=== PATIENT | female | born 1935 | race Hispanic/Latino ===

== ENCOUNTER 2017-04-29 18:36 | Inpatient (IN) | payer MEDICARE ==
[~2017-04-29] VITALS: Ht 157.5 cm; Wt 63.6 kg
[~2017-04-29 18:36] MED LIST: B COMPLEX1200 MCG/1; BABY ASPIRIN81 MG; CALCIUM600 MG; CALCIUM600 MG PO; GEMFIBROZIL600 MG PO; LOSARTAN POTASS25 MG PO; MELOXICAM15 MG PO; METOPROLOL TART25 MG PO; OMEGA 3 1,0001 EACH PO; PRILOSEC40 MG PO; TIROSINT75 MCG PO; VITAMIN B-12500 MCG PO; VITAMIN D-32000 UNIT PO
[2017-04-29] MEDS ORDERED: ONDANSETRON HCL INJ 2 MG/ML VIAL IV STA (21:38)
[2017-04-29 21:45] LABS: BASOPHILS % 0.3 % (0.0-1.0); EOSINOPHILS % 0.1 % (0.0-6.0); HEMATOCRIT 49.3 % (34.2-44.1); HEMOGLOBIN 16.2 g/dL (12.0-16.0); LYMPHOCYTES # (AUTO) 1.2 (1.0-3.2); LYMPHOCYTES % 15.3 % (18.0-39.1); MEAN CORPUSCULAR HEMOGLOBIN 27.9 pg (28-32); MEAN CORPUSCULAR HGB CONC 32.9 g/dL (31-35); MEAN CORPUSCULAR VOLUME 84.9 fL (81-99); MONOCYTES # (AUTO) 0.4 (0.2-0.8); MONOCYTES % 4.7 % (4.4-11.3); NEUTROPHILS # (AUTO) 6.2 (2.1-6.9); NEUTROPHILS % 79.2 % (38.7-80.0); PLATELET COUNT 270 x10e3/uL (140-360); RED BLOOD COUNT 5.81 x10e6/uL (3.6-5.1); RED CELL DISTRIBUTION WIDTH 14.3 % (11.7-14.4)
[2017-04-29] MEDS ORDERED: SODIUM CHLORIDE 0.9% 1000ML 1,000 ML IV ONE (21:45)
[2017-04-29 22:00] LABS: ALANINE AMINOTRANSFERASE 25 IU/L (0-55); ALBUMIN 3.9 g/dL (3.5-5.0); ALKALINE PHOSPHATASE 66 IU/L (40-150); AMYLASE 91 U/L (25-125); ANION GAP 17.7 mmol/L (8-16); BLOOD UREA NITROGEN 18 mg/dL (7-26); BUN/CREATININE RATIO 18 (6-25); CALCIUM 9.5 mg/dL (8.4-10.2); CARBON DIOXIDE 27 mmol/L (22-29); CHLORIDE 98 mmol/L (98-107); CREATINE KINASE 59 IU/L (29-168); EST GLOMERULAR FILTRATION RATE 53 ML/MIN (60-); GLUCOSE 138 mg/dL (74-118); LIPASE 11 U/L (8-78); POTASSIUM 4.7 mmol/L (3.5-5.1); SODIUM 138 mmol/L (136-145)
[2017-04-29] MEDS ORDERED: SODIUM CHLORIDE 0.9% 50ML 50 ML ONE (22:49)
[2017-04-29] MEDS ORDERED: IOPAMIDOL 370 MG/ML 200 ML INFUS..BTL INJ ONE (22:49)
--- NOTE | 2017-04-29 23:11 | Diagnostic Imaging Report ---
EXAMINATION: CHEST SINGLE (PORTABLE) INDICATION: Shadows of breath COMPARISON: 01/04/2011 FINDINGS: TUBES and LINES: None. LUNGS: Lungs are not well inflated. There are bibasilar atelectasis. There is mild prominence of the central pulmonary vasculature, consistent with pulmonary venous congestion. PLEURA: No pleural effusion or pneumothorax. HEART AND MEDIASTINUM: The cardiomediastinal silhouette is unremarkable. There are atherosclerotic calcifications within the aorta. BONES AND SOFT TISSUES: No acute osseous lesion. Soft tissues are unremarkable. UPPER ABDOMEN: No free air under the diaphragm. IMPRESSION: 1. Low lung volumes with evidence of bibasilar atelectasis. 2. No evidence of consolidation on today's exam. If high clinical concern for pneumonia, dedicated PA and lateral view of the chest in upright position is recommended Signed by: Dr. Farrukh Thorne M.D. on 04/29/2017 11:07 PM
[2017-04-29 23:15] LABS: BILIRUBIN,URINE NEGATIVE (NEGATIVE); KETONES,URINE NEGATIVE (NEGATIVE); LEUKOCYTE ESTERASE ,URINE 1+ (NEGATIVE); NITRITE,URINE NEGATIVE (NEGATIVE); PROTEIN,URINE DIPSTICK NEGATIVE (NEGATIVE); URINE UROBILINOGEN 0.2 mg/dL (0.2 - 1)
--- NOTE | 2017-04-29 23:16 | Diagnostic Imaging Report ---
EXAM: CT Abdomen and Pelvis WITH contrast INDICATION: Abdominal pain, nausea, vomiting, diarrhea. COMPARISON: None. TECHNIQUE: Abdomen and pelvis were scanned utilizing a multidetector helical scanner from the lung base to the pubic symphysis after administration of IV contrast. Coronal and sagittal reformations were obtained. Routine protocol was performed. Scan was performed when during portal venous phase. IV CONTRAST: 100 mL of Isovue-370 ORAL CONTRAST: Water RADIATION DOSE: Total DLP: 323.07 mGy*cm Estimated effective dose: (DLP x 0.015 x size factor) mSv COMPLICATIONS: None FINDINGS: LINES and TUBES: None. LOWER THORAX: Unremarkable HEPATOBILIARY: Focal indeterminate hypodensity in the right liver measuring 1.2 cm in diameter on series 2, image 15 There is intra- and extra- hepatic biliary dilation likely post cholecystectomy reservoir effect. GALLBLADDER: There are cholecystectomy clips. No wall thickening. SPLEEN: No splenomegaly. PANCREAS: No focal masses or ductal dilatation. ADRENALS: Indeterminate 1.8 cm left adrenal nodule KIDNEYS/URETERS: Kidneys enhance symmetrically. No hydronephrosis. No cystic or solid mass lesions. No stones. GI TRACT: No abnormal distention, wall thickening, or evidence of bowel obstruction. However, there is hyperemia of the small bowel predominantly involving the terminal ileum compatible with enteritis. Appendix is normal. PELVIC ORGANS/BLADDER: There are postop changes of hysterectomy and bilateral oophorectomies. LYMPH NODES: Numerous, small mesenteric lymph nodes with evidence of fat stranding best seen on coronal image 44 and axial image 39. VESSELS: There is mild atherosclerotic disease in the aorta and major arterial branches. PERITONEUM / RETROPERITONEUM: . Mesenteric root fat stranding with few enlarged lymph nodes BONES: There are moderate degenerative changes in the lumbar spine. SOFT TISSUES: Unremarkable. IMPRESSION: 1. Findings in the small bowel and mesenteric root compatible with enteritis in the appropriate clinical setting. 2. Indeterminate left adrenal nodule measuring 1.8 cm. 3. Indeterminate hypodensity in the right liver measuring 1.2 cm in diameter. 4. Further evaluation of latter findings can be obtained with MRI with and without contrast Signed by: Dr. Farrukh Thorne M.D. on 04/29/2017 11:12 PM
[2017-04-29 23:17] LABS: CLARITY,URINE CLEAR (CLEAR); COLOR,URINE YELLOW (YELLOW)
[2017-04-29 23:36] LABS: BACTERIA,URINE RARE /HPF; EPITHELIAL CELLS,URINE FEW /LPF; RBC,URINE 0-5 /HPF (0-5)
[2017-04-30] VITALS (8 sets, daily range): BP systolic 108–143; BP diastolic 61–70
[2017-04-30] MEDS ORDERED: ONDANSETRON HCL INJ 2 MG/ML VIAL IV STA (00:10)
[2017-04-30] MEDS ORDERED: ONDANSETRON HCL INJ 2 MG/ML VIAL IV PRN (00:15)
[2017-04-30] MEDS ORDERED: METRONIDAZOLE 500MG/NS 100ML IV SCH (00:15)
--- OUTSIDE RECORDS SUMMARY | 2017-04-30 00:32 | XMS REPORT ---
Author Author [facility] Address Unknown Phone Unavailable Care Team Providers Care Press Offbearer Name Role Phone TAMARA GAINES Unavailable Unavailable Problems This patient has no known problems. Allergies, Adverse Reactions, Alerts This patient has no known allergies or adverse reactions. Medications This patient has no known medications. Results Test Description Test Time Test Comments Text Results Atomic Results Result Comments CHEST SINGLE (PORTABLE) [place] [address] Patient Name: AHMET HUSAIN MR #: [id number] : 1935 Age/Sex: 82/F Req #: [id number] Adm Physician: Ordered by: LEO RAY MD Report #: [id number] Location: ER Room/Bed: ___ Procedure: [id number] DX/CHEST SINGLE (PORTABLE) Exam Date: 04/29/17 Exam Time: 2230 REPORT STATUS: Signed EXAMINATION: CHEST SINGLE (PORTABLE) INDICATION: Shadows of breath COMPARISON: 01/04/2011 FINDINGS: TUBES and LINES: None. LUNGS: Lungs are not well inflated. There are bibasilar atelectasis. There is mild prominence of the central pulmonary vasculature, consistent with pulmonary venous congestion. PLEURA: No pleural effusion or pneumothorax. HEART AND MEDIASTINUM: The cardiomediastinal silhouette is unremarkable. There are atherosclerotic calcifications within the aorta. BONES AND SOFT TISSUES: No acute osseous lesion. Soft tissues are unremarkable. UPPER ABDOMEN: No free air under the diaphragm. IMPRESSION: 1. Low lung volumes with evidence of bibasilar atelectasis. 2. No evidence of consolidation on today's exam. If high clinical concern for pneumonia, dedicated PA and lateral view of the chest in upright position is recommended Signed by: Dr. Farrukh Thorne M.D. on 04/29/2017 11:07 PM Dictated By: FARRUKH STOVALL MD 06 Transcribed By: GALE on 04/29/172306 COPY TO: LEO RAY MD CT ABDOMEN/PELVIS W [place] [address] Patient Name: AHMET HUSAIN MR #: [id number] : 1935 Age/Sex: 82/F Req #: [id number] Adm Physician: Ordered by: LEO RAY MD Report #: [id number] Location: ER Room/Bed: ___ Procedure: [id number] CT/CT ABDOMEN/PELVIS W Exam Date: 04/29/17 Exam Time: 2228 REPORT STATUS: Signed EXAM: CT Abdomen and Pelvis WITH contrast INDICATION: Abdominal pain, nausea, vomiting, diarrhea. COMPARISON: None. TECHNIQUE: Abdomen and pelvis were scanned utilizing a multidetector helical scanner from the lung base to the pubic symphysis after administration of IV contrast. Coronal and sagittal reformations were obtained. Routine protocol was performed. Scan was performed when during portal venous phase. IV CONTRAST: 100 mL of Isovue-370 ORAL CONTRAST: Water RADIATION DOSE: Total DLP: 323.07 mGy*cm Estimated effective dose: (DLP x 0.015 x size factor) mSv COMPLICATIONS: None FINDINGS: LINES and TUBES: None. LOWER THORAX: Unremarkable HEPATOBILIARY: Focal indeterminate hypodensity in the right liver measuring 1.2 cm in diameter on series 2, image 15 There is intra- and extra- hepatic biliary dilation likely post cholecystectomy reservoir effect. GALLBLADDER: There are cholecystectomy clips. No wall thickening. SPLEEN: No splenomegaly. PANCREAS: No focal masses or ductal dilatation. ADRENALS: Indeterminate 1.8 cm left adrenal nodule KIDNEYS/URETERS: Kidneys enhance symmetrically. No hydronephrosis. No cystic or solid mass lesions. No stones. GI TRACT: No abnormal distention, wall thickening, or evidence of bowel obstruction. However, there is hyperemia of the small bowel predominantly involving the terminal ileum compatible with enteritis. Appendix is normal. PELVIC ORGANS/BLADDER: There are postop changes of hysterectomy and bilateral oophorectomies. LYMPH NODES: Numerous, small mesenteric lymph nodes with evidence of fat stranding best seen on coronal image 44 and axial image 39. VESSELS: There is mild atherosclerotic disease in the aorta and major arterial branches. PERITONEUM / RETROPERITONEUM: . Mesenteric root fat stranding with few enlarged lymph nodes BONES: There are moderate degenerative changes in the lumbar spine. SOFT TISSUES: Unremarkable. IMPRESSION: 1. Findings in the small bowel and mesenteric root compatible with enteritis in the appropriate clinical setting. 2. Indeterminate left adrenal nodule measuring 1.8 cm. 3. Indeterminate hypodensity in the right liver measuring 1.2 cm in diameter. 4. Further evaluation of latter findings can be obtained with MRI with and without contrast Signed by: Dr. Farrukh Thorne M.D. on 04/29/2017 11 :12 PM Dictated By: FARRUKH STOVALL MD 2314 Transcribed By: GALE on 04/29/172 COPY TO: LEO RAY MD
[2017-04-30] MEDS: LEVOFLOXACIN 500MG/D5W 100ML IV SCH (00:37)
[2017-04-30] MEDS: SODIUM CHLORIDE 0.9% 1000ML 1,000 ML IV SCH ×3 (00:37→14:07)
[2017-04-30] MEDS ORDERED: PROMETHAZINE 12.5MG/ NACL 0.9% 12.5 MG/50 ML BAG IV PRN (02:15)
[2017-04-30] MEDS: METRONIDAZOLE 500MG/NS 100ML IV SCH ×3 (08:00→20:30)
[2017-04-30] MEDS: METOPROLOL TARTRATE 25 MG TAB PO SCH (14:00)
[2017-04-30] MEDS ORDERED: LOSARTAN POTASSIUM 25 MG TAB PO SCH (14:00)
--- NOTE | 2017-04-30 14:24 | History and Physical ---
PCP: Dr. Trinidad Burnett CHIEF COMPLAINT: Diarrhea for 4 days, dehydration, abdominal pain. HISTORY OF PRESENT ILLNESS: Patient is an 82-year-old female with diarrhea for the past 4 days. The patient came in with CT scan of abdomen and pelvis showing that she has finding in the small bowel and mesenteric root compatible with enteritis associated with diarrhea. Patient has been getting IV antibiotics and antiemetics. She has tolerated a clear liquid diet. She is otherwise stable at this time. PAST MEDICAL HISTORY: Hyperlipidemia, hypertension and hypothyroidism. HOME MEDICATIONS: Gemfibrozil, levothyroxine, losartan, metoprolol tartrate. ALLERGIES: NO KNOWN ALLERGIES. PAST SURGICAL HISTORY: Cholecystectomy and hysterectomy. SOCIAL HISTORY: Patient does not smoke or use alcohol. No recreational drugs. REVIEW OF SYSTEMS: Diarrhea, abdominal pain and cramping. PHYSICAL EXAMINATION GENERAL: The patient is not in acute distress. She is awake. VITAL SIGNS: Temperature 98. Blood pressure 110/61. Pulse rate 73. Respirations 18. HEENT: Normocephalic, atraumatic, anicteric. NECK: Supple grossly. PULMONARY: Clear. CARDIOVASCULAR: Regular rate and rhythm. ABDOMEN: Generalized discomfort. No rebound or guarding. EXTREMITIES: No gross cyanosis or edema. NEUROLOGIC: There is no gross focal deficit. LABORATORY: Sodium is 138, potassium 4.7, chloride 98, bicarb 27, BUN 18, creatinine 1.0, glucose 138. WBC 7.8, hemoglobin 16, hematocrit 49, platelets 270. IMPRESSION 1. Small-bowel enteritis. 2. Abdominal pain. 3. Diarrhea. 4. Dehydration. PLAN: Continue with IV fluids. Advance to a full liquid diet. Antibiotics. Consultation with Dr. Montalvo. The patient is otherwise stable at this time. Job#: [id number]
[2017-04-30] MEDS ORDERED: HYDROCHLOROTHIA25 MG PO (14:47)
[2017-04-30] MEDS ORDERED: OMEPRAZOLE40 MG PO (14:47)
[2017-04-30] MEDS ORDERED: ZEITA PO (14:47)
[2017-04-30] MEDS ORDERED: AMLODIPINE BESYL5 MG PO (14:47)
[2017-05-01] VITALS (9 sets, daily range): BP systolic 95–144; BP diastolic 59–87
[2017-05-01] MEDS: LEVOFLOXACIN 500MG/D5W 100ML IV SCH ×2 (00:18→23:52)
[2017-05-01] MEDS: METRONIDAZOLE 500MG/NS 100ML IV SCH ×4 (01:55→20:27)
[2017-05-01] MEDS ORDERED: LEVOTHYROXINE SODIUM 75 MCG TAB PO SCH (06:00)
[2017-05-01] MEDS: SODIUM CHLORIDE 0.9% 1000ML 1,000 ML IV SCH ×2 (06:05→20:27)
[2017-05-01] MEDS: PANTOPRAZOLE SOD 40 MG TABEC PO SCH (07:30)
[2017-05-01 07:42] LABS: BASOPHILS % 0.6 % (0.0-1.0); EOSINOPHILS # (AUTO) 0.2 (0.0-0.4); EOSINOPHILS % 2.6 % (0.0-6.0); HEMATOCRIT 41.3 % (34.2-44.1); HEMOGLOBIN 13.6 g/dL (12.0-16.0); LYMPHOCYTES # (AUTO) 3.1 (1.0-3.2); LYMPHOCYTES % 47.7 % (18.0-39.1); MEAN CORPUSCULAR HGB CONC 32.9 g/dL (31-35); MEAN CORPUSCULAR VOLUME 85.2 fL (81-99); MONOCYTES # (AUTO) 0.5 (0.2-0.8); MONOCYTES % 7.3 % (4.4-11.3); NEUTROPHILS # (AUTO) 2.7 (2.1-6.9); NEUTROPHILS % 41.6 % (38.7-80.0); PLATELET COUNT 218 x10e3/uL (140-360); RED BLOOD COUNT 4.85 x10e6/uL (3.6-5.1); RED CELL DISTRIBUTION WIDTH 14.4 % (11.7-14.4)
[2017-05-01 08:06] LABS: ALANINE AMINOTRANSFERASE 18 IU/L (0-55); ALBUMIN 2.9 g/dL (3.5-5.0); ALKALINE PHOSPHATASE 49 IU/L (40-150); ANION GAP 12.3 mmol/L (8-16); BLOOD UREA NITROGEN 8 mg/dL (7-26); BUN/CREATININE RATIO 10 (6-25); CALCIUM 7.9 mg/dL (8.4-10.2); CARBON DIOXIDE 24 mmol/L (22-29); CHLORIDE 111 mmol/L (98-107); CREATININE, SERUM 0.81 mg/dL (0.57-1.11); EST GLOMERULAR FILTRATION RATE > 60 ML/MIN (60-); GLUCOSE 83 mg/dL (74-118); POTASSIUM 3.3 mmol/L (3.5-5.1); SODIUM 144 mmol/L (136-145)
[2017-05-01] MEDS: HYDROCHLOROTHIAZIDE 25 MG TAB PO SCH (08:26)
[2017-05-01] MEDS: METOPROLOL TARTRATE 25 MG TAB PO SCH (08:26)
[2017-05-01] MEDS: AMLODIPINE BESYLATE 5 MG TAB PO SCH (08:26)
[2017-05-01 08:35] LABS: FOLATE 18.5 ng/mL (7.0-15.4)
[2017-05-01] MEDS ORDERED: METOPROLOL TARTRATE 25 MG TAB PO SCH (09:00)
[2017-05-01] MEDS ORDERED: LOSARTAN POTASSIUM 25 MG TAB PO SCH (09:00)
--- NOTE | 2017-05-01 13:23 | Consultation ---
DATE OF CONSULTATION: May 01, 2017 CHIEF COMPLAINT: Diarrhea. HISTORY OF PRESENT ILLNESS: This is a very pleasant, 82-year-old lady coming in with diarrhea on and off, worse in the last 4 days. Denies blood in the stool. She felt weak and dehydrated. PAST MEDICAL HISTORY: See old records. SURGICAL HISTORY: Not significant. FAMILY HISTORY: Noncontributory. REVIEW OF SYSTEMS: Diarrhea, weakness. MEDICATIONS: See list. PHYSICAL EXAMINATION VITAL SIGNS: Blood pressure 140/80, pulse 80, temperature 98. GENERAL: A well nourished lady in no distress. HEENT: No pallor. ABDOMEN: Soft, nontender. EXTREMITIES: No edema. ASSESSMENT AND PLAN: Diarrhea, chronic and acute. I recommend continued antibiotics and stool for C. diff. Patient is improving. Will advance diet. Consider colonoscopy as an outpatient, as she has had symptoms on and off for the last few months. Job#: [id number]
[2017-05-01] MEDS ORDERED: POTASSIUM CHLORIDE 10 MEQ TABCR PO ONE (16:00)
[2017-05-01] MEDS: DICYCLOMINE HCL 10 MG CAP PO SCH (20:27)
[2017-05-01] MEDS: CHOLESTYRAMINE 4 GM PACKET PO SCH (20:27)
[2017-05-01] MEDS: DIPHENOXYLATE/ATROPINE TAB PO PRN (20:27)
[2017-05-02] VITALS (7 sets, daily range): BP systolic 115–128; BP diastolic 68–97
[2017-05-02] MEDS: METRONIDAZOLE 500MG/NS 100ML IV SCH ×4 (02:30→21:13)
[2017-05-02] MEDS: LEVOTHYROXINE SODIUM 50 MCG TAB PO SCH (05:48)
[2017-05-02 06:27] LABS: ANION GAP 10.5 mmol/L (8-16); BLOOD UREA NITROGEN 6 mg/dL (7-26); BUN/CREATININE RATIO 8 (6-25); CALCIUM 8.2 mg/dL (8.4-10.2); CARBON DIOXIDE 27 mmol/L (22-29); CHLORIDE 110 mmol/L (98-107); CREATININE, SERUM 0.77 mg/dL (0.57-1.11); EST GLOMERULAR FILTRATION RATE > 60 ML/MIN (60-); GLUCOSE 100 mg/dL (74-118); POTASSIUM 3.5 mmol/L (3.5-5.1); SODIUM 144 mmol/L (136-145)
[2017-05-02] MEDS ORDERED: POTASSIUM CHLORIDE 10 MEQ TABCR PO ONE (09:30)
[2017-05-02] MEDS: DICYCLOMINE HCL 10 MG CAP PO SCH ×3 (09:31→15:37)
[2017-05-02] MEDS: HYDROCHLOROTHIAZIDE 25 MG TAB PO SCH (09:31)
[2017-05-02] MEDS: PANTOPRAZOLE SOD 40 MG TABEC PO SCH (09:31)
[2017-05-02] MEDS: AMLODIPINE BESYLATE 5 MG TAB PO SCH (09:32)
[2017-05-02] MEDS: METOPROLOL TARTRATE 25 MG TAB PO SCH (09:32)
[2017-05-02] MEDS: DIPHENOXYLATE/ATROPINE TAB PO PRN (09:32)
[2017-05-02] MEDS: CHOLESTYRAMINE 4 GM PACKET PO SCH ×3 (09:32→21:13)
[2017-05-02] MEDS: SODIUM CHLORIDE 0.9% 1000ML 1,000 ML IV SCH (10:11)
[2017-05-03] VITALS: BP_SYST 136
[2017-05-03] MEDS: SODIUM CHLORIDE 0.9% 1000ML 1,000 ML IV SCH ×2 (00:05→12:52)
[2017-05-03] MEDS: LEVOFLOXACIN 500MG/D5W 100ML IV SCH (00:12)
[2017-05-03] MEDS: METRONIDAZOLE 500MG/NS 100ML IV SCH ×3 (02:58→14:42)
--- NOTE | 2017-05-03 03:44 | Progress Note ---
DATE: May 02, 2017 GI PROGRESS NOTE DATE OF : 1935 SUBJECTIVE: Patient is no longer having diarrhea. She has had 1 soft stool today. REVIEW OF SYSTEMS GENERAL: No fever or chills. CVS: No chest pain, palpitation. RESPIRATORY: No cough or expectoration. MEDICATIONS: Cholestyramine, metronidazole, dicyclomine, amlodipine, metoprolol, pantoprazole, hydrochlorothiazide, levothyroxine, levofloxacin, Zofran. PHYSICAL EXAMINATION VITAL SIGNS: Temperature 96.1, pulse 64, respiration 18, blood pressure 116/68, oxygen saturation 97% on room air. GENERAL: Not in any acute distress. HEENT: Moist mucous membranes. Anicteric sclerae. CVS: S1, S2 regular. LUNGS: Bilaterally grossly clear. ABDOMEN: Soft, nondistended, nontender. No palpable mass or hernia. Positive bowel sounds. EXTREMITIES: Warm. No leg edema. LABS: WBC 6.4, hemoglobin 13.6, hematocrit 41.3, platelet count 218,000, MCV 85.2. Sodium 144, potassium 3.5, chloride 110, bicarb 27, BUN 6, creatinine 0.77, glucose 100. CT of the abdomen and pelvis on April 29, 2017 with IV contrast showed 1. Findings in the small bowel and mesenteric root compatible with enteritis. 2. Indeterminate left adrenal nodule. 3. Indeterminate hypodensity in the right liver measuring about 1.2 cm in diameter. 4. Further evaluation of the latter findings with MRI with and without contrast. IMPRESSIONS 1. Diarrhea has resolved. 2. Stool Clostridium difficile is negative. 3. Indeterminate lesion in the liver likely simple cyst. This can be evaluated further with magnetic resonance imaging, this can be done electively as an outpatient. PLAN: Continue present management. Patient can be discharged home from GI standpoint. She is to see Dr. Montalvo [her electric motor repairer] on Tuesday. Job#: [id number] CQ
[2017-05-03] MEDS: LEVOTHYROXINE SODIUM 50 MCG TAB PO SCH (06:30)
[2017-05-03 06:51] LABS: ANION GAP 11.1 mmol/L (8-16); BLOOD UREA NITROGEN 10 mg/dL (7-26); BUN/CREATININE RATIO 12 (6-25); CALCIUM 8.7 mg/dL (8.4-10.2); CARBON DIOXIDE 28 mmol/L (22-29); CHLORIDE 107 mmol/L (98-107); CREATININE, SERUM 0.82 mg/dL (0.57-1.11); EST GLOMERULAR FILTRATION RATE > 60 ML/MIN (60-); GLUCOSE 104 mg/dL (74-118); POTASSIUM 4.1 mmol/L (3.5-5.1); SODIUM 142 mmol/L (136-145)
[2017-05-03 07:47] VITALS: BP 135/86
[2017-05-03] MEDS: PANTOPRAZOLE SOD 40 MG TABEC PO SCH (08:30)
[2017-05-03] MEDS: DICYCLOMINE HCL 10 MG CAP PO SCH ×3 (08:30→16:30)
[2017-05-03] MEDS: CHOLESTYRAMINE 4 GM PACKET PO SCH ×2 (09:21→14:42)
[2017-05-03] MEDS: AMLODIPINE BESYLATE 5 MG TAB PO SCH (09:21)
[2017-05-03] MEDS: METOPROLOL TARTRATE 25 MG TAB PO SCH (09:21)
[2017-05-03] MEDS: HYDROCHLOROTHIAZIDE 25 MG TAB PO SCH (09:21)
[2017-05-03 12:31] VITALS: BP 135/86
[2017-05-03 13:33] VITALS: BP 127/86
[2017-05-03 16:13] VITALS: BP 120/77
--- NOTE | 2017-05-03 19:18 | Discharge Summary ---
PRIMARY CARE PROVIDER: Dr. Trinidad Burnett. SPRUE KNOCKER: Dr. Miles Henry. FINAL DIAGNOSES: 1. Acute enteritis associated with abdominal pain, dehydration and diarrhea. 2. Acute gastroenteritis. 3. Electrolyte disorder, corrected. 4. Generalized weakness, improved. SUMMARY: An 82-year-old female with diarrhea, abdominal pain. CT scan showed enteritis. Patient was rehydrated. She also has electrolyte disorder. Patient's electrolyte disorder corrected. She is doing much better now. She is stable. Potassium replaced. She was on hydrochlorothiazide at home, and on top of the diuretic she is also with diarrhea. She is doing better. She is stable. She will go home with Questran I packet 3 times a day as needed for diarrhea. She will continue with Cipro and Flagyl to finish a 5-day course. Patient may return to work on . She is comfortable at this time. Other medications including potassium 10 mEq daily, Zofran ODT p.r.n., and Bentyl 10 mg q.a.c. Patient is stable, discharged home today. Follow up outpatient with Dr. Burnett and with a welder fitter gas if needed. Patient stable, discharged home. Job#: [id number] EV
== END 2017-05-03 18:00 | disposition home or self-care (01) | DRG 392 ==
LOC: ER 18:36 → ERHOLD 04-30 00:30 → MED/SURG2 04-30 01:37
PROVIDERS: ADMIT Internal Medicine; ATTEND Internal Medicine
DX: A09 Infectious gastroenteritis and colitis, unspecified (principal); E27.8 Other specified disorders of adrenal gland; E87.8 Other disorders of electrolyte and fluid balance, not elsewhere classified; E86.0 Dehydration; E78.5 Hyperlipidemia, unspecified; E03.9 Hypothyroidism, unspecified; I10 Essential (primary) hypertension; K76.89 Other specified diseases of liver
CPT/HCPCS: 36415; 71045; 74177; 80048; 80053; 81001; 82150; 82550; 82553; 82607; 82746; 82948; 83690; 84443; 84484; 85025; 87045; 87086; 87177; 87493; 93005; 96360; 96365; 96374; 96376; 99284; J1956; J2405; J2550; J7030; Q9967

== ENCOUNTER → 2018-08-11 | Day surgery (SDC) | payer MEDICARE ==
[2018-08-09 09:50] LABS: BASOPHILS # (AUTO) 0.1 (0.0-0.1); BASOPHILS % 0.8 % (0.0-1.0); EOSINOPHILS # (AUTO) 0.3 (0.0-0.4); EOSINOPHILS % 3.1 % (0.0-6.0); HEMATOCRIT 44.1 % (34.2-44.1); HEMOGLOBIN 14.2 g/dL (12.0-16.0); LYMPHOCYTES # (AUTO) 3.1 (1.0-3.2); LYMPHOCYTES % 36.1 % (18.0-39.1); MEAN CORPUSCULAR HEMOGLOBIN 27.9 pg (28-32); MEAN CORPUSCULAR HGB CONC 32.2 g/dL (31-35); MEAN CORPUSCULAR VOLUME 86.6 fL (81-99); MONOCYTES # (AUTO) 0.7 (0.2-0.8); MONOCYTES % 7.7 % (4.4-11.3); NEUTROPHILS # (AUTO) 4.5 (2.1-6.9); NEUTROPHILS % 52.1 % (38.7-80.0); PLATELET COUNT 250 x10e3/uL (140-360); RED BLOOD COUNT 5.09 x10e6/uL (3.6-5.1); RED CELL DISTRIBUTION WIDTH 13.5 % (11.7-14.4)
[~2018-08-11] MED LIST changes: +AMLODIPINE BESYL5 MG PO; +HYDROCHLOROTHIA25 MG PO; +LIDOCAINE HCL 2% LOCAL INJ 5 ML SDV VIAL INJ ONE; +OMEPRAZOLE40 MG PO; +PROPOFOL IV EMULSION 10 MG/ML 20 ML VIAL ONE; +ZEITA PO
--- OUTSIDE RECORDS SUMMARY | 2018-08-11 05:23 | XMS REPORT | Summary of Care ---
Author Author [facility] [place] Organization [facility] [place] Address Unknown Phone Unavailable Encounter HQ Ryanr_nell(FIN) [id number] Date(s): 02/26/16 - 02/26/16 [facility] [place] [address] [place] [phone] Discharge Disposition: Home or Self Care Attending Physician: Serjio Buitrago MD Vital Signs No data available for this section Problem List Condition Effective Dates Status Health Status Informant Degenerative joint Active disease(Confirmed)1 GERD - Active Gastro-esophageal reflux disease(Confirmed) Hypertension(Confirm Active ed) Hypothyroid(Confirme Active d) 1rt knee Allergies, Adverse Reactions, Alerts Substance Reaction Severity Status NKDA Active Medications No data available for this section Results No data available for this section Immunizations No data available for this section Procedures Procedure Date Related Diagnosis Body Site Cardiac catheterization Cholecystectomy Colonoscopy Operation Social History Social History Type Response Substance Abuse Previous Treatment: None. IV drug use: No. Drug use interferes with work/home: No. Ready to change: No. Household substance abuse concerns: No. Cessation Education Provided: No. Sexual Sexually active: No. Exercise Exercise duration: 0.1 Employment/School Operates hazardous equipment: No. Alcohol Previous treatment: None. Smoking Status Never smoker; Exposure to Tobacco Smoke None; Cigarette Smoking Last 365 Days No; Reg Smoking Cessation Counseling No 1djd of rt knee Assessment and Plan No data available for this section
--- OUTSIDE RECORDS SUMMARY | 2018-08-11 05:23 | XMS REPORT ---
Author Author Kurtis Goyal Organization [employer] Address Unknown Phone Unavailable Care Team Providers Care Radiation Monitor Name Role Phone Kurtis Goyal CP Unavailable Allergies No Known Allergies Problems Problem Type Condition Code Onset Dates Condition Status Problem Osteoporosis M81.0 Active Problem Osteoarthritis M19.90 Active Problem Vitamin D deficiency, unspecified E55.9 Active Problem Shoulder pain, left M25.512 Active Problem Polyarthritis M13.0 Active Medications No Known Medications Results No Known Results Summary Purpose [employer] Submission
--- OUTSIDE RECORDS SUMMARY | 2018-08-11 05:23 | XMS REPORT ---
Author Author Kurtis Goyal Organization [employer] Address Unknown Phone Unavailable Care Team Providers Care Kiln Puller Name Role Phone Kurtis Goyal CP Unavailable Allergies No Known Allergies Problems Problem Type Condition Code Onset Dates Condition Status Problem Osteoarthritis M19.90 Active Problem Shoulder pain, left M25.512 Active Problem Osteoporosis M81.0 Active Problem Polyarthritis M13.0 Active Medications No Known Medications Results No Known Results Summary Purpose [employer] Submission
--- OUTSIDE RECORDS SUMMARY | 2018-08-11 05:23 | XMS REPORT | Summary of Care ---
Author Organization Unknown Address Unknown Phone Unavailable Encounter HQ Shawn_nell(YUDITH) [id number] Date(s): 09/21/13 - 09/21/13 [facility] [address] [address] Discharge Disposition: Home Physician Attending: Kevon Cochran Physician_Referring: Kevon Cochran Reason for Visit 724.4 721.42 722.52 Problem List Condition Effective Dates Status Health Status Informant Degenerative joint Active disease(Confirmed)1 GERD - Active Gastro-esophageal reflux disease(Confirmed) Hypertension(Confirm Active ed) Hypothyroid(Confirme Active d) 1rt knee Allergies, Adverse Reactions, Alerts Substance Reaction Severity Status NKDA Active Medications No data available for this section Medications Administered During Your Visit No data available for this section Immunizations No data available for this section Social History Social History Type Response Substance Abuse Previous treatment: None, IV drug use: No, Has drug use interfered with your work or home life? No, Ready to change: No, Concerns about substance abuse in household: No, Drug Cessation Education Provided No Sexual Sexually active: No Exercise 1 Employment/School Hazardous equipment operation: No Alcohol Previous treatment: None Smoking Status Never smoker, Exposure to Tobacco Smoke None, Cigarette Smoking Last 365 Days No, Reg Smoking Cessation Counseling No 1djd of rt knee
--- OUTSIDE RECORDS SUMMARY | 2018-08-11 05:23 | XMS REPORT ---
Author Author Hien Verdin Organization [employer] Address Unknown Phone Unavailable Care Team Providers Care Buildings And Grounds Superintendent Name Role Phone Hien Verdin CP Unavailable Allergies No Known Allergies Problems Problem Type Condition Code Onset Dates Condition Status Problem Osteoarthritis M19.90 Active Problem Shoulder pain, left M25.512 Active Problem Osteoporosis M81.0 Active Problem Polyarthritis M13.0 Active Medications No Known Medications Results No Known Results Summary Purpose [employer] Submission
--- OUTSIDE RECORDS SUMMARY | 2018-08-11 05:23 | XMS REPORT ---
Author Author Sejrio Buitrago Organization [employer] Address Unknown Phone Unavailable Care Team Providers Care Director Of Learning Name Role Phone MinnaSerjio badillo CP Unavailable Allergies, Adverse Reactions, Alerts Substance Reaction Event Type N.K.D.A. Info Not Available Non Drug Allergy Problems Problem Type Condition Code Onset Dates Condition Status Assessment Osteoarthritis M19.90 Active Assessment Osteoporosis M81.0 Active Assessment Vitamin D deficiency, unspecified E55.9 Active Problem Vitamin D deficiency, unspecified E55.9 Active Problem Osteoporosis M81.0 Active Problem Sinusitis J32.9 Active Problem Polyarthritis M13.0 Active Problem Osteoarthritis M19.90 Active Problem Shoulder pain, left M25.512 Active Medications Medication Code System Code Instructions Start Date End Date Status Dosage Hydrochlorothiazide [facility] 91826889449 12.5 MG Orally Once a day Active 1 capsule Amlodipine Besylate ND 90685712077 5 MG Orally Once a day Active 1 tablet Omeprazole [facility] 03731941576 40 MG Orally Once a day Active 1 capsule Zetia ND 57536868185 10 MG Orally Once a day Active 1 tablet Prolia ND 62529339866 60 MG/ML Subcutaneous Apr 19, 2017 Active as directed Acetaminophen ND 71518262709 500 MG Orally daily as needed Active 2 capsules as needed Colchicine [facility] 71666521895 0.6 MG Orally Once a day Active 1 tablet Metoprolol Tartrate ND 97979631798 25 MG Orally Once a day Active 1 tablet with food Levothyroxine Sodium ND 22655316680 75 MCG Orally Once a day Active 1 tablet Calcium + D [facility] 97668062884 600-800 MG-UNIT Orally Twice a day Active 1 tablet with meals Vital Signs Date/Time: Jan 05, 2018 BMI 27.21 Index Weight 144.0 lbs Height 61 in Temperature 97.7 F Cardiac Monitoring Heart Rate 60 /min Blood Pressure Diastolic 58 mm Hg Blood Pressure Systolic 104 mm Hg Results No Known Results Summary Purpose [employer] Submission
--- OUTSIDE RECORDS SUMMARY | 2018-08-11 05:23 | XMS REPORT | Continuity of Care Document ---
Author Author Marco A gustavo [facility] Interface Address Unknown Phone Unavailable Problems Problem Status Onset Date Classification Date Reported Comments Source J20.9 - "ACUTE BRONCHITIS, UNSPECIFIED" Active 12/17/2014 [facility] [place] 724.4 721.42 722.52 Active 09/17/2013 [facility] 724.4 / 10762 Active 09/17/2013 [facility] Dehydration Active Problem 05/03/2017 [facility] Enteritis Active Problem 05/03/2017 [facility] Degenerative joint disease<sup>1</sup> Active Problem 04/11/2016 rt knee [facility] [place] GERD - Gastro-esophageal reflux disease Active Problem 04/11/2016 [facility] [place] Hypertension Active Problem 04/11/2016 [facility] [place] Hypothyroid Active Problem 04/11/2016 [facility] [place] Osteoporosis Active Diagnosis 01/10/2018 Hunter Goyal Osteoarthritis Active Diagnosis 01/10/2018 Hunter Goyal Vitamin D deficiency, unspecified Active Diagnosis 01/10/2018 Hunter Goyal Shoulder pain, left Active Problem 01/10/2018 Hunter Goyal Polyarthritis Active Problem 01/10/2018 Hunter Goyal Left hip pain Active Diagnosis 04/22/2017 Hunter Goyal Sinusitis Active Problem 01/10/2018 Hunter Goyal LUMBOSACRAL NEURITIS NOS Active [facility] SPOND COMPR LUMB SP CORD Active [facility] LUMB/LUMBOSAC DISC DEGEN Active [facility] KNEE JOINT REPLACEMENT Active [facility] Medications Medication Details Route Status Patient Instructions Ordering Provider Order Date Source Azithromycin 2 tablets on the first day, then 1 tablet daily for 4 days Orally Active 250 MG Orally Once a day Minna 06/30/2017 Hunter Goyal Prolia as directed Subcutaneous Active 60 MG/ML Subcutaneous Minna 04/19/2017 Hunter Goyal Calcium Carbonate (Calcium) 600 Mg Tablet, 600 Mg Oral Daily Active 10/25/2012 [facility] Cholecalciferol (Vitamin D3) (Vitamin D-3) 2,000 Unit Capsule, 2000 Unit Oral Daily Active 10/25/2012 [facility] Cyanocobalamin (Vitamin B-12) (Vitamin B-12) 500 Mcg Tablet, 500 Mcg Oral Daily Active 10/25/2012 [facility] Meloxicam 15 Mg Tablet, 15 Mg Oral Rt Daily Active 10/25/2012 [facility] [place]-3 Fatty Acids/Fish Oil ([place] 3 1,000 Mg Softgel) 1 Each Capsule, 1000 Mg Oral Daily Active 10/25/2012 [facility] Omeprazole (Prilosec) 40 Mg Capsule., 40 Mg Oral Daily Active 10/25/2012 [facility] Aspirin (Baby Aspirin) 81 Mg Tab.chew, Daily Active 08/03/2012 [facility] Calcium Carbonate (Calcium) 600 Mg Tablet, Daily Active 08/03/2012 [facility] Vitamin B Complex/Vit B12 (B Complex With B-12 Drops Sl) 1,200 Mcg/1 Ml Drops, Daily Active 08/03/2012 [facility] Amlodipine Besylate 5 Mg Tablet Daily Active [facility] Gemfibrozil 600 Mg Tablet Bid Active [facility] Hydrochlorothiazide 25 Mg Tablet Daily Active [facility] Levothyroxine Sodium (Tirosint) 75 Mcg Capsule Daily Active [facility] Losartan Potassium 25 Mg Tablet Daily Active [facility] Metoprolol Tartrate 25 Mg Tablet Daily Active [facility] Omeprazole 40 Mg Capsule. Daily Active [facility] Zeita Daily Active [facility] Zetia 1 tablet Orally Active 10 MG Orally Once a day Minna Goyal Metoprolol Tartrate 1 tablet with food Orally Active 25 MG Orally Once a day Minna Goyal Amlodipine Besylate 1 tablet Orally Active 5 MG Orally Once a day Minna Goyal Hydrochlorothiazide 1 capsule Orally Active 12.5 MG Orally Once a day Minna Hunter Goyal Levothyroxine Sodium 1 tablet Orally Active 75 MCG Orally Once a day Minna Hunter Goyal Omeprazole 1 capsule Orally Active 40 MG Orally Once a day Minna Hunter Goyal Calcium + D 1 tablet with meals Orally Active 600-800 MG-UNIT Orally Twice a day Minna Goyal Acetaminophen 2 capsules as needed Orally Active 500 MG Orally daily as needed Minna Hunter Goyal Colchicine 1 tablet Orally Active 0.6 MG Orally Once a day Minnaaby Goyal Allergies, Adverse Reactions, Alerts Substance Category Reaction Severity Reaction type Status Date Reported Comments Source N.K.D.A. Adverse Reaction Info Not Available Adverse Reaction Active 01/05/2018 Hunter Goyal Immunizations Immunization Date Given Site Status Last Updated Comments Source Results Order Name Results Value Reference Range Date Interpretation Comments Source Estimated glomerular filtration rate (GFR) determination Estimated glomerular filtration rate (GFR) determination null 60 05/03/2017 [facility] Glucose measurement Glucose measurement 104 74 - 118 05/03/2017 [facility] Serum or plasma anion gap Serum or plasma anion gap 11.1 8 - 16 05/03/2017 [facility] Serum or plasma calcium measurement (mass/volume) Serum or plasma calcium measurement (mass/volume) 8.7 8.4 - 10.2 05/03/2017 [facility] Serum or plasma carbon dioxide, total measurement (moles/volume) Serum or plasma carbon dioxide, total measurement (moles/volume) 28 22 - 29 05/03/2017 [facility] Serum or plasma chloride measurement (moles/volume) Serum or plasma chloride measurement (moles/volume) 107 98 - 107 05/03/2017 [facility] Serum or plasma creatinine measurement (mass/volume) Serum or plasma creatinine measurement (mass/volume) 0.82 0.57 - 1.11 05/03/2017 [facility] Serum or plasma potassium measurement (moles/volume) Serum or plasma potassium measurement (moles/volume) 4.1 3.5 - 5.1 05/03/2017 [facility] Serum or plasma sodium measurement (moles/volume) Serum or plasma sodium measurement (moles/volume) 142 136 - 145 05/03/2017 [facility] Serum or plasma urea nitrogen measurement (mass/volume) Serum or plasma urea nitrogen measurement (mass/volume) 10 7 - 26 05/03/2017 [facility] Serum or plasma urea nitrogen/creatinine mass ratio Serum or plasma urea nitrogen/creatinine mass ratio 12 6 - 25 05/03/2017 [facility] Capillary blood glucose measurement by glucometer (mass/volume) Capillary blood glucose measurement by glucometer (mass/volume) 238 70 - 120 05/02/2017 [facility] Automated blood basophil count (count/volume) Automated blood basophil count (count/volume) 0.0 0.0 - 0.1 05/01/2017 [facility] Automated blood basophil count as percentage of total leukocytes Automated blood basophil count as percentage of total leukocytes 0.6 0.0 - 1.0 05/01/2017 [facility] Automated blood eosinophil count Automated blood eosinophil count 0.2 0.0 - 0.4 05/01/2017 [facility] Automated blood eosinophil count as percentage of total leukocytes Automated blood eosinophil count as percentage of total leukocytes 2.6 0.0 - 6.0 05/01/2017 [facility] Automated blood hematocrit (volume fraction) Automated blood hematocrit (volume fraction) 41.3 34.2 - 44.1 05/01/2017 [facility] Automated blood lymphocyte count as percentage ot total leukocytes Automated blood lymphocyte count as percentage ot total leukocytes 47.7 18.0 - 39.1 05/01/2017 [facility] Automated blood monocyte count as percentage of total leukocytes Automated blood monocyte count as percentage of total leukocytes 7.3 4.4 - 11.3 05/01/2017 [facility] Automated blood neutrophil count Automated blood neutrophil count 2.7 2.1 - 6.9 05/01/2017 [facility] Automated blood platelet count (count/volume) Automated blood platelet count (count/volume) 218 140 - 360 05/01/[address] [facility] Automated blood segmented neutrophil count as percentage of total leukocytes Automated blood segmented neutrophil count as percentage of total leukocytes 41.6 38.7 - 80.0 05/01/2017 [facility] Automated erythrocyte mean corpuscular hemoglobin (mass per erythrocyte) Automated erythrocyte mean corpuscular hemoglobin (mass per erythrocyte) 28.0 28 - 32 05/01/2017 [facility] Automated erythrocyte mean corpuscular hemoglobin concentration measurement (mass/volume) Automated erythrocyte mean corpuscular hemoglobin concentration measurement (mass/volume) 32.9 31 - 35 05/01/2017 [facility] Automated erythrocyte mean corpuscular volume Automated erythrocyte mean corpuscular volume 85.2 81 - 99 05/01/2017 [facility] Blood cobalamin (vitamin B12) measurement (mass/volume) Blood cobalamin (vitamin B12) measurement (mass/volume) 1680 213 - 816 05/01/2017 [facility] Blood erythrocytes automated count (number/volume) Blood erythrocytes automated count (number/volume) 4.85 3.6 - 5.1 05/01/2017 [facility] Blood hemoglobin measurement (moles/volume) Blood hemoglobin measurement (moles/volume) 13.6 12.0 - 16.0 05/01/2017 [facility] Blood leukocytes automated count (number/volume) Blood leukocytes automated count (number/volume) 6.42 4.8 - 10.8 05/01/2017 [facility] Blood lymphocytes count (number/volume) Blood lymphocytes count (number/volume) 3.1 1.0 - 3.2 05/01/2017 [facility] Blood monocytes automated count (number/volume) Blood monocytes automated count (number/volume) 0.5 0.2 - 0.8 05/01/2017 [facility] Plasma globulin measurement (mass/volume) Plasma globulin measurement (mass/volume) 2.9 2.3 - 3.5 05/01/2017 [facility] Serum or plasma alanine aminotransferase measurement (enzymatic activity/volume) Serum or plasma alanine aminotransferase measurement (enzymatic activity/volume) 18 0 - 55 05/01/2017 [facility] Serum or plasma albumin measurement (mass/volume) Serum or plasma albumin measurement (mass/volume) 2.9 3.5 - 5.0 05/01/2017 [facility] Serum or plasma albumin/globulin mass ratio Serum or plasma albumin/globulin mass ratio 1.0 0.8 - 2.0 05/01/2017 [facility] Serum or plasma alkaline phosphatase measurement (enzymatic activity/volume) Serum or plasma alkaline phosphatase measurement (enzymatic activity/volume) 49 40 - 150 05/01/2017 [facility] Serum or plasma folate measurement (mass/volume) Serum or plasma folate measurement (mass/volume) 18.5 7.0 - 15.4 05/01/2017 [facility] Serum or plasma protein measurement (mass/volume) Serum or plasma protein measurement (mass/volume) 5.8 6.5 - 8.1 05/01/2017 [facility] Serum or plasma thyrotropin measurement by detection limit <=0.005 miu/l (units/volume) Serum or plasma thyrotropin measurement by detection limit <=0.005 miu/l (units/volume) 0.044 0.350 - 4.940 05/01/2017 [facility] Serum or plasma total bilirubin measurement (mass/volume) Serum or plasma total bilirubin measurement (mass/volume) null 0.2 - 1.2 05/01/2017 [facility] Red Cell Distribution Width 14.4 11.7 - 14.4 05/01/2017 [facility] IM GRANULOCYTES % 0.2 0.0 - 1.0 05/01/2017 [facility] Absolute Immature Granulocyte (auto 0.01 0 - 0.1 05/01/2017 [facility] Aspartate Amino Transf (AST/SGOT) 21 5 - 34 05/01/2017 [facility] Clostridium difficile A and B toxin assay Clostridium difficile A and B toxin assay NEGATIVE NEGATIVE 04/30/2017 [facility] Automated urine sediment leukocyte count by microscopy (number/high power field) Automated urine sediment leukocyte count by microscopy (number/high power field) null 0 - 5 04/29/2017 [facility] Bacteria detection in urine sediment by light microscopy Bacteria detection in urine sediment by light microscopy RARE NONE 04/29/2017 [facility] Epithelial cells detection in urine sediment by light microscopy Epithelial cells detection in urine sediment by light microscopy FEW NONE 04/29/2017 [facility] Erythrocytes detection in urine sediment by light microscopy Erythrocytes detection in urine sediment by light microscopy null 0 - 5 04/29/2017 [facility] Specific gravity of Urine by Test strip Specific gravity of Urine by Test strip 1.005 1.010 - 1.025 04/29/2017 [facility] Urine clarity Urine clarity CLEAR CLEAR 04/29/2017 [facility] Urine color determination Urine color determination YELLOW YELLOW 04/29/2017 [facility] Urine erythrocytes detection Urine erythrocytes detection TRACE NEGATIVE 04/29/2017 [facility] Urine glucose detection Urine glucose detection NEGATIVE NEGATIVE 04/29/2017 [facility] Urine ketones detection by automated test strip Urine ketones detection by automated test strip NEGATIVE NEGATIVE 04/29/2017 [facility] Urine leukocyte esterase detection by dipstick Urine leukocyte esterase detection by dipstick 1+ NEGATIVE 04/29/2017 [facility] Urine nitrite detection Urine nitrite detection NEGATIVE NEGATIVE 04/29/2017 [facility] Urine pH measurement by automated test strip Urine pH measurement by automated test strip 5 5 - 7 04/29/2017 [facility] Urine protein measurement by test strip (mass/volume) Urine protein measurement by test strip (mass/volume) NEGATIVE NEGATIVE 04/29/2017 [facility] Urine total bilirubin measurement (mass/volume) Urine total bilirubin measurement (mass/volume) NEGATIVE NEGATIVE 04/29/2017 [facility] Urine urobilinogen measurement by test strip (mass/volume) Urine urobilinogen measurement by test strip (mass/volume) 0.2 0.2 - 1 04/29/2017 [facility] Serum or plasma amylase measurement (enzymatic activity/volume) Serum or plasma amylase measurement (enzymatic activity/volume) 91 25 - 125 04/29/2017 [facility] Serum or plasma creatine kinase MB measurement (mass/volume) Serum or plasma creatine kinase MB measurement (mass/volume) 2.30 0 - 5.0 04/29/2017 [facility] Serum or plasma creatine kinase measurement (enzymatic activity/volume) Serum or plasma creatine kinase measurement (enzymatic activity/volume) 59 29 - 168 04/29/2017 [facility] Serum or plasma lipase measurement (enzymatic activity/volume) Serum or plasma lipase measurement (enzymatic activity/volume) 11 8 - 78 04/29/2017 [facility] Troponin I measurement by highly sensitive enzyme immunoassay Troponin I measurement by highly sensitive enzyme immunoassay null 0 - 0.300 04/29/2017 [facility] Spine cervical series DX Spine cervical series DX EXAMINATION: Cervical spine series 5 views: 04/08/2016 DISCUSSION: There is moderate mid cervical degenerative changes with up to 3 mm retrolisthesis of C3-C4 greater than C2-C3 and slight grade 1 anterior listhesis of C4-C5. Moderate intervertebral disc height loss is most notable at C6-C7 greater than C5-C6 with up to 2 mm posterior osteophytes. Uncovertebral and facet hypertrophy result in moderate left C5-C6 and C6-C7 and mild bilateral C3- C4 and left C4-C5 bony neural foraminal narrowing. No evidence of fractures or dislocations are seen. The odontoid is normal. The prevertebral soft tissues are normal. If clinical concern persists consider further evaluation with CT of the cervical spine. IMPRESSION: Moderate mid cervical degenerative changes with multilevel listhesis and suspected foraminal stenosis. If there is clinical concern for instability, consider flexion-extension views. 04/08/2016 - - Read by: Aldo Cartagena MD Dictated Date/time: 04/08/16 17:42 Electronically Signed by: Aldo Cartagena MD 04/08/16 17:44 FINAL REPORT ISIDRO Black Ankle 3 views Bilateral DX Ankle 3 views Bilateral DX Bilateral ankles 3 views 02/26/2016 Clinical: Polyarthritis. Comparison: No prior exam. Findings: No fracture is identified. Osteopenia is present. The bilateral tibiotalar joints appear preserved. No osseous erosion is identified. Soft tissue swelling is seen along the lateral aspects of both ankles. Approximately 2 mm osseous density is seen adjacent to the left medial malleolus and may represent chronic avulsion fracture. Small to moderate bilateral plantar enthesophytes are present. Impression: 1. No osseous erosion. 2. Left medial malleolus chronic appearing avulsion fracture. 3. Osteopenia. Soft tissue swelling. 02/26/2016 - - Read by: Luis Walls MD Dictated Date/time: 02/26/16 16:37 Electronically Signed by: Luis Walls MD 02/26/16 16:40 FINAL REPORT ISIDRO Black Shoulder 2+ Views Bilateral DX Shoulder 2+ Views Bilateral DX Exam: Right and left shoulder x-rays, 3 views each Reason for Exam: M13.0 Polyarthritis, unspecified, shoulder pain m25.519 Comparison Exam: None Discussion: Right: No acute bony abnormalities identified. Mild osteoarthritis seen within the AC joint and glenohumeral joint. Superior subluxation is seen of the humeral head is findings are suggestive of rotator cuff tear. Consider dedicated MRI exam. Left: No acute bony abnormalities identified. X-ray Mild osteoarthritis seen within the AC joint and glenohumeral joint. Calcifications are seen overlying the expected location of the supraspinatus and infraspinatus tendons, suggestive of calcific tendinitis. Impression: 1. No acute cardiopulmonary abnormalities. 02/26/2016 - - Read by: Lizandro Gleason MD Dictated Date/time: 02/26/16 16:10 Electronically Signed by: Lizandro Gleason MD 02/26/16 16:15 FINAL REPORT JESUSITA Black Chest 2 views DX Chest 2 views DX EXAM: Chest 2 views HISTORY: acute bronchitis COMPARISON: 01/15/2013 The heart size is normal and the lungs are clear. There is no pleural effusion or pneumothorax. Kyphosis and osteopenia noted. IMPRESSION: No acute abnormality. 12/17/2014 - - Read by: Yumiko Padilla MD Dictated Date/time: 12/19/14 12:14 Electronically Signed by: Yumiko Padilla MD 12/19/14 12:15 FINAL REPORT JESUSITA Black Sinus paranasal series DX Sinus paranasal series DX EXAM: Sinus paranasal series HISTORY: acute sinusitis j01.90 COMPARISON: None IMPRESSION: No air-fluid level or radiographically evident significant mucosal thickening of the paranasal sinuses is seen. The nasal septum is midline. 12/17/2014 - - Read by: Yumiko Padilla MD Dictated Date/time: 12/17/14 16:47 Electronically Signed by: Yumiko Padilla MD 12/17/14 16:48 FINAL REPORT [facility] [place] Spine lumbar wo contrast MRI Spine lumbar wo contrast MRI MRI lumbar spine without contrast. COMPARISON: No priors. TECHNIQUE: Multiplanar imaging of the lumbar spine was performed in T1 and T2 weighted sequences. CLINICAL HX: Right hip pain with radiation towards right leg. FINDINGS: Vertebral bodies: Vertebral bodies demonstrate appropriate height and normal signal on T1 and T2 weighted sequences. Small hemangioma is incidental noted along the anterior/superior margin of L1 vertebral body. Lower thoracic Cord: The conus medullaris demonstrates normal morphology and terminates at approximately T12-L1 level. T12-L1 level: Mild spondylosis and mild diffuse disc bulge is present. No significant central canal or foraminal stenosis. L1-L2 level: Mild spondylosis, diffuse disc bulge and facet arthrosis is noted. There is mild central canal and mild bilateral foraminal stenosis. L2-L3 level: Mild diffuse disc bulge, facet arthrosis and minimal ligamentous hypertrophy is present. No significant central canal or foraminal stenosis. L3-L4 level: Moderate diffuse disc bulge, facet arthrosis and ligamentous hypertrophy. Minimal central canal and mild left foraminal stenosis. L4-L5 level: Mild spondylosis, large diffuse disc bulge, facet arthrosis and mild ligamentous hypertrophy. There is moderate central canal stenosis. No significant foraminal stenosis. L5-S1 level: Mild spondylosis, large diffuse disc bulge, facet arthrosis and mild ligamentous hypertrophy. There is mild left foraminal and moderate right foraminal stenosis. Minimal central canal stenosis. IMPRESSION: Combination of spondylosis, disc disease, facet arthrosis and ligamentous hypertrophy results in moderate central canal stenosis at L4-L5 level. Minimal to mild central canal stenosis is present at other levels as discussed above. No focal disc herniation is present at any level in the lumbar spine. Moderate right foraminal stenosis is present at L5-S1 level. Minimal to mild foraminal stenosis is present at the other levels as discussed above. SL:13 09/21/2013 - - Read by: Rodrick Burnett MD Dictated Date/time: 09/21/13 15:25 Electronically Signed by: Rodrick Burnett MD 09/21/13 15:48 FINAL REPORT [facility] Vital Signs Vital Sign Value Date Comments Source Weight 144.0 01/05/2018 Hunter Goyal Height 61 01/05/2018 Hunter Goyal Temperature Oral (F) 97.7 F 01/05/2018 Hunter Goyal Heart Rate 60 01/05/2018 Hunter Goyal Diastolic (mm Hg) 58 01/05/2018 Hunter Goyal Systolic (mm Hg) 104 01/05/2018 Hunter Goyal Weight 138 06/30/2017 Hunter Goyal Height 61 06/30/2017 Hunter Goyal Temperature Oral (F) 97.6 F 06/30/2017 Hunter Goyal Heart Rate 70 06/30/2017 Hunter Goyal Diastolic (mm Hg) 62 06/30/2017 Hunter Goyal Systolic (mm Hg) 124 06/30/2017 Hunter Goyal Weight 141 04/19/2017 Hunter Goyal Height 61 04/19/2017 Hunter Goyal Temperature Oral (F) 98.4 F 04/19/2017 Hunter Goyal Heart Rate 72 04/19/2017 Hunter Goyal Diastolic (mm Hg) 78 04/19/2017 Hunter Goyal Systolic (mm Hg) 116 04/19/2017 Hunter Goyal Encounters Location Location Details Encounter Type Encounter Number Reason For Visit Attending Provider ADM Date DC Date Status Source [facility] Outpatient [id number] Kevon Cochran 09/21/2013 09/22/2013 [facility] [place] [id number] Trinidad Sy-Harvey 12/17/2014 12/18/2014 [facility] [place] [facility] [place] [id number] Serjio Buitrago 02/26/2016 02/27/2016 [facility] [place] [facility] [place] [id number] Trinidad Sy-Harvey 04/08/2016 04/09/2016 [facility] [place] [facility] Inpatient [id number] ERNESTO GHOSH MD 04/30/2017 05/03/2017 [facility] Procedures Procedure Code Date Perfomer Comments Source Computed tomography of abdomen and pelvis with contrast [id number] 04/29/2017 [facility] Cardiac catheterization [id number] JESUSITA Black Cholecystectomy [id number] JESUSITA Black Colonoscopy [id number] JESUSITA Black Operation [id number] JESUSITA Black
--- OUTSIDE RECORDS SUMMARY | 2018-08-11 05:23 | XMS REPORT ---
Author Author Serjio Buitargo [facility] eClinicalWorks Address Unknown Phone Unavailable Care Team Providers Care Senior Grant Writer Name Role Phone Serjio Buitrago Unavailable Allergies, Adverse Reactions, Alerts Substance Reaction Event Type N.K.D.A. Info Not Available Non Drug Allergy Problems Problem Type Condition Code Onset Dates Condition Status Assessment Vitamin D deficiency, unspecified E55.9 Active Assessment Sinusitis J32.9 Active Problem Vitamin D deficiency, unspecified E55.9 Active Problem Osteoporosis M81.0 Active Problem Sinusitis J32.9 Active Problem Polyarthritis M13.0 Active Assessment Osteoporosis M81.0 Active Problem Osteoarthritis M19.90 Active Problem Shoulder pain, left M25.512 Active Medications Medication Code System Code Instructions Start Date End Date Status Dosage Hydrochlorothiazide ND 98958395195 12.5 MG Orally Once a day Active 1 capsule Amlodipine Besylate ND 52856064237 5 MG Orally Once a day Active 1 tablet Metoprolol Tartrate ND 55228418427 25 MG Orally Once a day Active 1 tablet with food Colchicine ND 85753276826 0.6 MG Orally Once a day Active 1 tablet Zetia ND 05908428849 10 MG Orally Once a day Active 1 tablet Levothyroxine Sodium ND 81283316367 75 MCG Orally Once a day Active 1 tablet Prolia ND 72821654710 60 MG/ML Subcutaneous Apr 19, 2017 Active as directed Calcium + D ND 37209186121 600-800 MG-UNIT Orally Twice a day Active 1 tablet with meals Azithromycin ND 48822850953 250 MG Orally Once a day June 30, 2017 July 05, 2017 Active 2 tablets on the first day, then 1 tablet daily for 4 days Acetaminophen ND 84193537232 500 MG Orally daily as needed Active 2 capsules as needed Omeprazole ND 30837304894 40 MG Orally Once a day Active 1 capsule Vital Signs Date/Time: June 30, 2017 BMI 26.07 Index Weight 138 lbs Height 61 in Temperature 97.6 F Cardiac Monitoring Heart Rate 70 /min Blood Pressure Diastolic 62 mm Hg Blood Pressure Systolic 124 mm Hg Results Name Result Date Reference Range Unit Abnormality Flag COMPREHENSIVE METABOLIC PANEL W/EGFR ----CALCIUM 9.5 20170616 8.6-10.4 mg/dL N ----CARBON DIOXIDE 30 20170616 20-31 mmol/L N ----ALT 17 20170616 6-29 U/L N ----CREATININE 0.89 20170616 0.60-0.88 mg/dL H ----AST 19 20170616 10-35 U/L N ----eGFR NON-AFR. KENYAN 60 20170616 > OR=60 mL/min/1.73m2 N ----ALKALINE PHOSPHATASE 82 20170616 33-130 U/L N ----eGFR 69 20170616 > OR=60 mL/min/1.73m2 N ----BILIRUBIN, TOTAL 0.3 20170616 0.2-1.2 mg/dL N ----BUN/CREATININE RATIO 22 20170616 6-22 (calc) N ----ALBUMIN/GLOBULIN RATIO 1.5 20170616 1.0-2.5 (calc) N ----SODIUM 142 20170616 135-146 mmol/L N ----GLOBULIN 2.7 20170616 1.9-3.7 g/dL (calc) N ----POTASSIUM 4.1 20170616 3.5-5.3 mmol/L N ----GLUCOSE 92 20170616 65-139 mg/dL N ----CHLORIDE 104 20170616 98-110 mmol/L N ----ALBUMIN 4.0 20170616 3.6-5.1 g/dL N ----UREA NITROGEN (BUN) 20 20170616 7-25 mg/dL N ----PROTEIN, TOTAL 6.7 20170616 6.1-8.1 g/dL N SED RATE BY MODIFIED WESTERGREN ----SED RATE BY MODIFIED WESTERGREN 9 20170616 < OR=30 mm/h N C-REACTIVE PROTEIN ----C-REACTIVE PROTEIN 3.1 20170616 <8.0 mg/L N CBC (INCLUDES DIFF/PLT) ----MCHC 33.7 20170616 32.0-36.0 g/dL N ----MCH 28.4 78396197 27.0-33.0 pg N ----PLATELET COUNT 297 20170616 140-400 Thousand/uL N ----RDW 14.0 72778056 11.0-15.0 % N ----BASOPHILS 0.6 81340460 % N ----ABSOLUTE NEUTROPHILS 4219 82642878 9724-7981 cells/uL N ----ABSOLUTE LYMPHOCYTES 2599 08730098 850-3900 cells/uL N ----MPV 9.3 13766300 7.5-12.5 fL N ----ABSOLUTE BASOPHILS 47 53498116 0-200 cells/uL N ----HEMATOCRIT 41.2 98924567 35.0-45.0 % N ----NEUTROPHILS 53.4 72242198 % N ----MCV 84.3 83644856 80.0-100.0 fL N ----RED BLOOD CELL COUNT 4.89 71815587 3.80-5.10 Million/uL N ----ABSOLUTE MONOCYTES 735 20170616 200-950 cells/uL N ----ABSOLUTE EOSINOPHILS 300 46834189 15-500 cells/uL N ----HEMOGLOBIN 13.9 20170616 11.7-15.5 g/dL N ----EOSINOPHILS 3.8 70245585 % N ----WHITE BLOOD CELL COUNT 7.9 57861126 3.8-10.8 Thousand/uL N ----LYMPHOCYTES 32.9 03723912 % N ----MONOCYTES 9.3 52004142 % N VITAMIN D, 25-HYDROXY, LC/MS/MS ----VITAMIN D, 25-OH, TOTAL 35 20170616 30-100 ng/mL N Summary Purpose eClinicalWorks Submission
--- OUTSIDE RECORDS SUMMARY | 2018-08-11 05:23 | XMS REPORT ---
Author Author Kurtis Goyal Organization eClinicalWorks Address Unknown Phone Unavailable Care Team Providers Care Radiology Administrator Name Role Phone Kurtis Goyal CP Unavailable [...]
--- OUTSIDE RECORDS SUMMARY | 2018-08-11 05:23 | XMS REPORT ---
Author Author Kurtis Goyal Organization eClinicalWorks Address Unknown Phone Unavailable Care Team Providers Care Volunteer Firefighter Name Role Phone Kurtis Goyal CP Unavailable Allergies No Known Allergies Problems Problem Type Condition Code Onset Dates Condition Status Problem Vitamin D deficiency, unspecified E55.9 Active Problem Osteoporosis M81.0 Active Problem Sinusitis J32.9 Active Problem Polyarthritis M13.0 Active Problem Osteoarthritis M19.90 Active Problem Shoulder pain, left M25.512 Active Medications No Known Medications Results No Known Results Summary Purpose eClinicalWorks Submission
--- OUTSIDE RECORDS SUMMARY | 2018-08-11 05:23 | XMS REPORT ---
Author Author Kurtis Goyal Organization eClinicalWorks Address Unknown Phone Unavailable Care Team Providers Care Speech Scientist Name Role Phone Kurtis Goyal CP Unavailable [...]
--- OUTSIDE RECORDS SUMMARY | 2018-08-11 05:23 | XMS REPORT | Summary of Care ---
Author Author [facility] [place] Organization [facility] [place] Address Unknown Phone Unavailable Encounter HQ Shawn_nell(FIN) [id number] Date(s): 04/08/16 - 04/08/16 [facility] [place] [address] [place] [phone] Discharge Disposition: Home or Self Care Attending Physician: Trinidad Burnett MD Vital Signs No data available for [...]
--- OUTSIDE RECORDS SUMMARY | 2018-08-11 05:23 | XMS REPORT ---
Author Author AlonemilyHien Organization eClinicalWorks Address Unknown Phone Unavailable Care Team Providers Care Down Filler Name Role Phone Hien Verdin CP Unavailable Allergies, Adverse Reactions, Alerts Substance Reaction Event Type N.K.D.A. Info Not Available Non Drug Allergy Problems Problem Type Condition Code Onset Dates Condition Status Problem Osteoarthritis M19.90 Active Problem Shoulder pain, left M25.512 Active Problem Osteoporosis M81.0 Active Assessment Left hip pain M25.552 Active Assessment Osteoarthritis M19.90 Active Problem Polyarthritis M13.0 Active Assessment Osteoporosis M81.0 Active Medications Medication Code System Code Instructions Start Date End Date Status Dosage Zetia [facility] 30247293960 10 MG Orally Once a day Active 1 tablet Metoprolol Tartrate [facility] 72582100640 25 MG Orally Once a day Active 1 tablet with food Prolia [facility] 86733647368 60 MG/ML Subcutaneous Apr 19, 2017 Active as directed Amlodipine Besylate ND 85041497502 5 MG Orally Once a day Active 1 tablet Hydrochlorothiazide ND 08394176713 12.5 MG Orally Once a day Active 1 capsule Levothyroxine Sodium ND 64596424758 75 MCG Orally Once a day Active 1 tablet Omeprazole [facility] 45898225753 40 MG Orally Once a day Active 1 capsule Calcium + D [facility] 45490080062 600-800 MG-UNIT Orally Twice a day Active 1 tablet with meals Acetaminophen ND 18823104886 500 MG Orally daily as needed Active 2 capsules as needed Vital Signs Date/Time: Apr 19, 2017 BMI 26.64 Index Weight 141 lbs Height 61 in Temperature 98.4 F Cardiac Monitoring Heart Rate 72 /min Blood Pressure Diastolic 78 mm Hg Blood Pressure Systolic 116 mm Hg Results No Known Results Summary Purpose eClinicalWorks Submission
--- OUTSIDE RECORDS SUMMARY | 2018-08-11 05:23 | XMS REPORT | Summary of Care ---
Author Author [facility] [place] Organization [facility] [place] Address Unknown Phone Unavailable Encounter HQ Shawn_nlel(FIN) [id number] Date(s): 12/17/14 - 12/17/14 [facility] [place] [address] [place], [place] [address] [phone] Discharge Disposition: Home Attending Physician: Trniidad Burnett MD Vital Signs No data available [...]
[2018-08-11 08:00] VITALS: BP 159/82
== END | disposition home or self-care (01) ==
LOC: OR 05:05
PROVIDERS: ATTEND Internal Medicine Gastroenterology
DX: K22.2 Esophageal obstruction (principal); K31.7 Polyp of stomach and duodenum; K29.70 Gastritis, unspecified, without bleeding; K44.9 Diaphragmatic hernia without obstruction or gangrene; K21.0 Gastro-esophageal reflux disease with esophagitis; Z71.3 Dietary counseling and surveillance; I10 Essential (primary) hypertension; I44.0 Atrioventricular block, first degree; E66.3 Overweight; J45.909 Unspecified asthma, uncomplicated; E11.9 Type 2 diabetes mellitus without complications; M54.2 Cervicalgia; Z01.810 Encounter for preprocedural cardiovascular examination; M54.9 Dorsalgia, unspecified; Z01.812 Encounter for preprocedural laboratory examination; Z68.25 Body mass index [BMI] 25.0-25.9, adult; Z96.651 Presence of right artificial knee joint
CPT/HCPCS: 36415; 43239; 43249; 85025; 93005; J2001; J2704; 43450

== ENCOUNTER 2019-05-21 07:53 | Outpatient (RCR) | payer MEDICARE ==
[~2019-05-21 07:53] MED LIST changes: -LIDOCAINE HCL 2% LOCAL INJ 5 ML SDV VIAL INJ ONE; -PROPOFOL IV EMULSION 10 MG/ML 20 ML VIAL ONE
== END 2019-05-22 ==
LOC: PT 07:53
PROVIDERS: ATTEND Specialist
DX: M16.11 Unilateral primary osteoarthritis, right hip (principal); M54.31 Sciatica, right side

== ENCOUNTER 2019-06-20 08:45 | Outpatient (RCR) | payer MEDICARE | END 2019-06-21 | LOC: PT 08:45 | PROVIDERS: ATTEND Specialist | DX: M16.11 Unilateral primary osteoarthritis, right hip (principal); M54.31 Sciatica, right side | CPT/HCPCS: 97139 ==

== ENCOUNTER → 2020-10-09 | Day surgery (SDC) | payer MEDICARE ==
[2020-10-08 08:22] LABS: BASOPHILS # (AUTO) 0.1 (0.0-0.1); BASOPHILS % 0.9 % (0.0-1.0); EOSINOPHILS # (AUTO) 0.2 (0.0-0.4); HEMATOCRIT 43.5 % (34.2-44.1); HEMOGLOBIN 13.8 g/dL (12.0-16.0); LYMPHOCYTES # (AUTO) 2.9 (1.0-3.2); LYMPHOCYTES % 39.4 % (18.0-39.1); MEAN CORPUSCULAR HEMOGLOBIN 28.4 pg (28-32); MEAN CORPUSCULAR HGB CONC 31.7 g/dL (31-35); MEAN CORPUSCULAR VOLUME 89.5 fL (81-99); MONOCYTES # (AUTO) 0.6 (0.2-0.8); MONOCYTES % 7.9 % (4.4-11.3); NEUTROPHILS # (AUTO) 3.7 (2.1-6.9); NEUTROPHILS % 49.5 % (38.7-80.0); PLATELET COUNT 231 x10e3/uL (140-360); RED BLOOD COUNT 4.86 x10e6/uL (3.6-5.1); RED CELL DISTRIBUTION WIDTH 14.2 % (11.7-14.4)
[~2020-10-09] MED LIST changes: +B12 ACTIVE1000 MCG PO; +D3 PO; +FAMOTIDINE20 MG PO; +LIDOCAINE HCL 2% LOCAL INJ 5 ML SDV VIAL INJ ONE; +PROPOFOL IV EMULSION 10 MG/ML 20 ML VIAL ONE; +VITAMIN C1000 MG PO
[2020-10-09 11:15] VITALS: BP 106/63
== END | disposition home or self-care (01) ==
LOC: OR 08:00
PROVIDERS: ATTEND Internal Medicine Gastroenterology
DX: K21.00 Gastro-esophageal reflux disease with esophagitis, without bleeding (principal); K31.7 Polyp of stomach and duodenum; K29.50 Unspecified chronic gastritis without bleeding; K44.9 Diaphragmatic hernia without obstruction or gangrene; K57.30 Diverticulosis of large intestine without perforation or abscess without bleeding; K64.8 Other hemorrhoids; Z71.3 Dietary counseling and surveillance; I12.9 Hypertensive chronic kidney disease with stage 1 through stage 4 chronic kidney disease, or unspecified chronic kidney disease; N18.9 Chronic kidney disease, unspecified; E66.3 Overweight; I44.0 Atrioventricular block, first degree; J45.909 Unspecified asthma, uncomplicated; E03.9 Hypothyroidism, unspecified; F41.9 Anxiety disorder, unspecified; Z01.810 Encounter for preprocedural cardiovascular examination; Z01.812 Encounter for preprocedural laboratory examination; Z20.822 Contact with and (suspected) exposure to COVID-19; Z68.26 Body mass index [BMI] 26.0-26.9, adult; Z86.16 Personal history of COVID-19
CPT/HCPCS: 36415; 43233; 43239; 45378; 85025; 93005; J2001; J2704; U0002

== ENCOUNTER → 2020-11-20 | Outpatient (RCR) | payer MEDICARE ==
[~2020-11-20] MED LIST changes: -LIDOCAINE HCL 2% LOCAL INJ 5 ML SDV VIAL INJ ONE; -PROPOFOL IV EMULSION 10 MG/ML 20 ML VIAL ONE
== END ==
LOC: OT 11-05 09:28
PROVIDERS: ATTEND Specialist
DX: M75.121 Complete rotator cuff tear or rupture of right shoulder, not specified as traumatic (principal); M25.511 Pain in right shoulder; M25.611 Stiffness of right shoulder, not elsewhere classified; R53.1 Weakness

== ENCOUNTER 2020-12-17 07:54 | Outpatient (RCR) | payer MEDICARE | END 2020-12-21 | LOC: OT 07:54 | PROVIDERS: ATTEND Specialist | DX: M75.121 Complete rotator cuff tear or rupture of right shoulder, not specified as traumatic (principal) ==

== ENCOUNTER 2021-01-08 10:38 | Outpatient (RCR) | payer MEDICARE | END 2021-01-20 | LOC: OT 10:38 | PROVIDERS: ATTEND Specialist | DX: M75.121 Complete rotator cuff tear or rupture of right shoulder, not specified as traumatic (principal) ==